=== PATIENT | female | born 1950 | race Two or more races ===

== ENCOUNTER 2022-02-10 07:00 | Day surgery (SDC) | payer OTHER ==
[~2022-02-10] VITALS: Ht 160 cm; Wt 76.7 kg
[~2022-02-10 07:00] MED LIST: EZALLOR SPRINKL20 MG PO; SYNTHROID50 MCG PO
[2022-02-10] MEDS ORDERED: IBU600 MG PO (13:47)
== END 2022-02-10 17:20 | disposition home or self-care (01) ==
LOC: CIR.AMB 07:00
PROVIDERS: ATTEND Obstetrics & Gynecology Gynecology
DX: N84.0 Polyp of corpus uteri (principal); E11.9 Type 2 diabetes mellitus without complications; E03.9 Hypothyroidism, unspecified; Z20.822 Contact with and (suspected) exposure to COVID-19

== ENCOUNTER 2023-06-04 15:49 | Emergency (ER) | payer OTHER ==
[~2023-06-04] VITALS: Ht 152.4 cm; Wt 76.7 kg
[~2023-06-04 15:49] MED LIST changes: +IBU600 MG PO
[2023-06-04] MEDS ORDERED: GLIMEPIRIDE1 M1 PO (16:16)
[2023-06-04] MEDS ORDERED: KETOROLAC TROMETHAMINE 30 MG VIAL IM STA (18:42)
== END 2023-06-04 19:11 | disposition home or self-care (01) ==
LOC: ER 15:50
DX: M65.841 Other synovitis and tenosynovitis, right hand (principal)
CPT/HCPCS: 96372; 99282; J1885

== ENCOUNTER 2023-11-15 20:39 | Emergency (ER) | payer OTHER ==
[~2023-11-15] VITALS: Ht 160 cm; Wt 83.9 kg
[~2023-11-15 20:39] MED LIST changes: +GLIMEPIRIDE1 M1 PO
[2023-11-15] MEDS ORDERED: AMOXICILLIN500 M1 PO (22:01)
[2023-11-15] MEDS ORDERED: CIPRO HC OTIC S10 ML OT (22:07)
[2023-11-15] MEDS ORDERED: CIPROFLOX-DEXA7.5 ML OT (22:07)
== END 2023-11-15 22:36 | disposition home or self-care (01) ==
LOC: ER 20:40
DX: H66.91 Otitis media, unspecified, right ear (principal)